=== PATIENT | male | born 1980 | race Two or more races ===

== ENCOUNTER 2018-11-14 06:19 | Emergency (ER) | payer SELFPAY ==
[~2018-11-14] VITALS: Ht 175.3 cm; Wt 70.0 kg
[2018-11-14 06:25] VITALS: BP 119/75; Ht 175.3 cm; Wt 70.0 kg
== END 2018-11-14 07:04 | disposition home or self-care (01) ==
LOC: ED 06:19
DX: K02.9 Dental caries, unspecified (principal); K08.89 Other specified disorders of teeth and supporting structures
CPT/HCPCS: J1885